=== PATIENT | female | born 1965 | race Caucasian/White ===

== ENCOUNTER 2018-08-22 04:43 | Emergency (ER) | payer OTHER ==
--- NOTE | 2018-08-22 04:51 | PDOC ---
History of Present Illness - General Chief Complaint: Rectal Bleed Stated Complaint: RECTAL BLEED Time Seen by Provider: 08/22/18 04:50 - History of Present Illness Initial Comments: This 52-year-old woman with no significant past medical history presents with a few hour history of rectal bleeding after diarrhea bowel movements. Patient states that approximately 8 hours prior to presentation, she developed onset of watery diarrhea. After several loose stools, she noted small amount of blood in the toilet bowl after bowel movement. She also had several episodes of vomiting (no blood or coffee grounds) a few hours after onset of the diarrhea. Vomiting has now resolved. Patient denies bleeding in between bowel movements. She states that she knows that she has internal hemorrhoids, diagnosed after her third . She denies lightheadedness/shortness of breath/weakness. No other history of bleeding/easy bruising. She has cramping abdominal pain associated with the diarrheal bowel movements but otherwise has no pain. 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 Past History - Past Medical History Allergies/Adverse Reactions: Allergies Allergy/AdvReac Type Severity Reaction Status Date / Time No Known Allergies Allergy Verified 08/22/18 04:49 Home Medications: Ambulatory Orders Carbamazepine [Tegretol -] 200 mg PO HS 08/22/18 Review of Systems - Review of Systems Able to Perform ROS?: Yes Comments:: 12 point review of systems is negative except for what is noted in the history of present illness *Physical Exam - Physical Exam Comments: GENERAL: Adult female, alert and oriented 3, in no acute distress HEAD: Normal with no signs of trauma. EYES: PERRLA, EOMI, sclera anicteric, conjunctiva clear. ENT: Ears normal, nares patent, oropharynx clear without exudates. Dry mucous membranes. NECK: Normal range of motion, supple without lymphadenopathy, JVD, or masses. LUNGS: Breath sounds equal, clear to auscultation bilaterally. No wheezes, and no crackles. HEART:Regular rate and rhythm, normal S1 and S2 without murmur, rub or gallop. ABDOMEN:.normal bowel sounds No guarding,tenderness or rebound.No masses No distention. Rectal-external tags; digital exam notable for palpable nonbleeding internal hemorrhoids; no masses or other abnormality palpated No blood on examining finger EXTREMITIES: Normal range of motion, no edema. No clubbing or cyanosis. No erythema, or tenderness. NEUROLOGICAL: Cranial nerves II through XII grossly intact. Normal speech. No focal neurological deficits. MUSCULOSKELETAL: Back non-tender to palpation, no CVA tenderness SKIN: Warm, Dry, normal turgor, no rashes or lesions noted. Progress Note - Progress Note Progress Note: This 62-year-old woman presents with history of limited rectal bleeding after diarrheal bowel movements overnight. No bleeding in between bowel movements no previous history of gastrointestinal hemorrhage. She denies recent increased bleeding/bruising. She states that she knows she has hemorrhoids. Of note, patient has no weakness/lightheadedness and vital signs reveal no evidence of tachycardia or hypotension. Exam as noted, with presence of hemorrhoids. Since patient does not have any rectal bleeding now and appears to have bleeding only associated with bowel movements, likely that this is hemorrhoidal in origin. Patient has been advised to return if she has increased rectal bleeding, especially if bleeding occurs in between bowel movements or she experiences lightheadedness/weakness. Also, she should return if she has any bleeding/coffee grounds in vomitus. She should also follow up with her PMD, within the next 2-3 days *DC/Admit/Observation/Transfer Diagnosis at time of Disposition: Bleeding per rectum, Internal hemorrhoid, bleeding - Discharge Dispostion Disposition: HOME Condition at time of disposition: Stable - Referrals Referrals: Chase Malin MD [Primary Care Provider] - 3 days - Patient Instructions Printed Discharge Instructions: DI for Rectal Bleeding Additional Instructions: Clear liquids as tolerated, advance diet cautiously Imodium/Pepto-Bismol/Kaopectate as needed for diarrhea Return if you have continuous rectal bleeding/tarry stools/abdominal pain/ weakness Follow-up with Dr. Malin within the next 2-3 days - Post Discharge Activity
[2018-08-22 05:02] VITALS: BP 133/78; PULSE 80; TEMP 98.6; BMI 23.8
== END 2018-08-22 05:17 | disposition home or self-care (01) ==
LOC: FER 04:43
DX: K62.5 Hemorrhage of anus and rectum (principal); K64.8 Other hemorrhoids
CPT/HCPCS: 99281-25